=== PATIENT | male | born 1955 | race Caucasian/White ===

== ENCOUNTER 2017-08-11 18:18 | Emergency (ER) | payer OTHER ==
[~2017-08-11] VITALS: Ht 188 cm; Wt 89.4 kg
[~2017-08-11 18:18] MED LIST: CRESTOR10 MG PO; DIOVAN HCT 1601 EACH PO; PROAIR HFA8.5 GM IH; ZPAK PO
[2017-08-11] MEDS ORDERED: LOTENSIN40 MG PO (18:39)
[2017-08-11] MEDS ORDERED: ASPIR 8181 MG PO (18:39)
[2017-08-11] MEDS ORDERED: CIPROFLOXIN HC2.5 M1 OPHTHALMIC (19:18)
[2017-08-11] MEDS ORDERED: NORCO 5-325 TA1 EAC1 PO (19:18)
[2017-08-11 19:30] VITALS: BP 156/93
== END 2017-08-11 19:32 | disposition home or self-care (01) ==
LOC: M.ERS 18:18
DX: H16.002 Unspecified corneal ulcer, left eye (principal); H16.9 Unspecified keratitis; F17.210 Nicotine dependence, cigarettes, uncomplicated; Z90.49 Acquired absence of other specified parts of digestive tract; Z86.73 Personal history of transient ischemic attack (TIA), and cerebral infarction without residual deficits

== ENCOUNTER → 2021-05-23 | Outpatient (CLI) | payer OTHER ==
[~2021-05-23] MED LIST changes: +ASPIR 8181 MG PO; +CIPROFLOXIN HC2.5 M1 OPHTHALMIC; +LOTENSIN40 MG PO; +NORCO 5-325 TA1 EAC1 PO
== END ==
LOC: M.NUC 09:36
PROVIDERS: ATTEND Family Medicine
DX: N60.89 Other benign mammary dysplasias of unspecified breast (principal)